=== PATIENT | female | born 1985 | race Caucasian/White ===

== ENCOUNTER 2020-01-11 13:22 | Outpatient (CLI) | payer OTHER ==
[~2020-01-11] VITALS: Ht 165.1 cm; Wt 78.1 kg
[~2020-01-11 13:22] MED LIST: PREN1TAB60 PO
[2020-01-11 14:00] VITALS: BP 109/71
[2020-01-11 14:38] LABS: MICROSCOPIC INDICATED
== END 2020-01-11 15:46 | disposition home or self-care (01) ==
LOC: LDOP 13:22
PROVIDERS: ATTEND Obstetrics & Gynecology
DX: O26.893 Other specified pregnancy related conditions, third trimester (principal); Z3A.34 34 weeks gestation of pregnancy; R10.9 Unspecified abdominal pain
CPT/HCPCS: 59025; 81001; 87086; 99211; G0463

== ENCOUNTER 2020-02-03 10:57 | Outpatient (CLI) | payer OTHER ==
[~2020-02-03] VITALS: Ht 165.1 cm; Wt 79.5 kg
[2020-02-03 11:00] VITALS: BP 120/84
== END 2020-02-03 13:35 | disposition home or self-care (01) ==
LOC: LDOP 10:57
PROVIDERS: ATTEND Obstetrics & Gynecology
DX: O46.8X3 Other antepartum hemorrhage, third trimester (principal); Z3A.37 37 weeks gestation of pregnancy
CPT/HCPCS: 59025; 76819; 99211; G0463

== ENCOUNTER 2020-02-17 02:11 | Inpatient (IN) | payer OTHER ==
[~2020-02-17] VITALS: Ht 165.1 cm; Wt 81.4 kg
[2020-02-17] MEDS ORDERED: D5%-LACTATED RINGERS 1,000 ML IV SCH (02:43)
[2020-02-17] MEDS ORDERED: LACTATED RINGERS 1,000 ML IV SCH ×2 (02:43→10:00)
[2020-02-17] MEDS ORDERED: OXYTOCIN 30U/ 0.9% NaCL 500ML 500 ML IV ONE (02:43)
[2020-02-17] MEDS ORDERED: AMPICILLIN 2 GM in SODIUM CHLORIDE 0.9% 100 ML IVPB STA (02:56)
[2020-02-17] MEDS ORDERED: FENTANYL PF 100 MCG/2ML IV PRN (03:00)
[2020-02-17] MEDS ORDERED: PENICILLIN GK 2,500,000 UNITS in DEXTROSE 5% 100 ML IVPB SCH (03:00)
[2020-02-17] MEDS ORDERED: CALCIUM CARBONATE 500 MG TAB.CHEW PO PRN ×2 (03:00→16:30)
[2020-02-17] MEDS ORDERED: PENICILLIN GK 5,000,000 UNITS in DEXTROSE 5% 100 ML IVPB ONE (03:00)
[2020-02-17] MEDS ORDERED: FENTANYL PF 100 MCG/2ML IVPush PRN (03:00)
[2020-02-17] MEDS ORDERED: SODIUM CITRATE/CITRIC ACID 30 ML UDC PO PRN (03:00)
[2020-02-17] MEDS ORDERED: TERBUTALINE 1 MG/ML, 1ML SQ PRN (03:00)
[2020-02-17] MEDS ORDERED: METOCLOPRAMIDE 5 MG/ML, 2ML IVPush PRN (03:00)
[2020-02-17] MEDS ORDERED: TERBUTALINE 1 MG/ML, 1ML IVPush PRN (03:00)
[2020-02-17] MEDS ORDERED: ONDANSETRON 2MG/ML, 2ML IVPush PRN ×2 (03:00→10:00)
[2020-02-17] MEDS ORDERED: NEWBORN KIT ONE (03:01)
[2020-02-17 03:30] LABS: BASOPHILS # (AUTO) 0.02 x10^3/uL (0-0.1); BASOPHILS % (AUTO) 0 % (0-1); EOSINOPHILS # (AUTO) 0.13 x10^3/uL (0-0.4); EOSINOPHILS % (AUTO) 2 % (1-7); LYMPHOCYTES # (AUTO) 1.61 x10^3/uL (1-3.4); LYMPHOCYTES % (AUTO) 19 % (22-44); MD NO; MEAN CORPUSCULAR HGB CONC 32.5 g/dL (32.4-35.8); MEAN CORPUSCULAR VOLUME 73.8 fL (80-100); MEAN PLATELET VOLUME 7.8 fL (7.4-10.4); MONOCYTES # (AUTO) 0.51 x10^3/uL (0.2-0.8); MONOCYTES % (AUTO) 6 % (2-9); NEUTROPHILS # (AUTO) 6.05 x10^3/uL (1.8-6.8); NEUTROPHILS % (AUTO) 73 % (42-75); PLATELET COUNT 213 x10^3/uL (130-400); RED BLOOD COUNT 4.01 x10^6/uL (3.82-5.3); RED CELL DISTRIBUTION WIDTH 16.8 % (9.6-15.2)
[2020-02-17] MEDS ORDERED: OXYTOCIN 30U/ 0.9% NaCL 500ML 500 ML IV PRN (04:36)
[2020-02-17] MEDS ORDERED: FENTANYL/BUPIV./NS/PF 250 ML EPIDCONT SCH ×2 (07:08→10:00)
[2020-02-17] MEDS: AMPICILLIN 1 GM in SODIUM CHLORIDE 0.9% 50 ML IVPB SCH ×2 (07:27→11:06)
[2020-02-17] MEDS ORDERED: FENTANYL PF 500 MCG, BUPIVACAINE/PF 0.5%, 30ML 62.5 ML in SODIUM CHLORIDE 0.9% 177.5 ML EPIDCONT SCH (07:30)
[2020-02-17] MEDS: LACTATED RINGERS 1,000 ML IVBOLUS PRN ×2 (08:51→09:47)
[2020-02-17] MEDS ORDERED: FENTANYL PF 100 MCG/2ML ONE (09:16)
[2020-02-17] MEDS ORDERED: BUPIVACAINE 0.25% ONE (09:16)
[2020-02-17] MEDS ORDERED: FENTANYL/BUPIV./NS/PF 250 ML EPIDCONT ONE (09:19)
[2020-02-17] MEDS ORDERED: EPHEDRINE 50 MG/ML, 1ML IVPush PRN (10:00)
[2020-02-17] MEDS ORDERED: LACTATED RINGERS 1,000 ML IVBOLUS PRN (10:00)
[2020-02-17] MEDS ORDERED: DEXTROSE 50%, 50ML SYRINGE IV STA (10:34)
[2020-02-17] MEDS: OXYTOCIN 30U/ 0.9% NaCL 500ML 500 ML IV SCH (16:10)
[2020-02-17] MEDS ORDERED: OXYTOCIN 30U/ 0.9% NaCL 500ML 500 ML ONE (16:26)
[2020-02-17] MEDS ORDERED: MISOPROSTOL 200 MCG TABLET PR PRN (16:30)
[2020-02-17] MEDS ORDERED: CARBOPROST TROMETHAMINE 250 MCG/ML, 1ML IM PRN (16:30)
[2020-02-17] MEDS ORDERED: HYDROcodone/APAP 5/325 TABLET PO PRN ×2 (16:30)
[2020-02-17] MEDS ORDERED: DOCUSATE 100 MG CAPSULE PO PRN (16:30)
[2020-02-17] MEDS ORDERED: SIMETHICONE 80 MG CHEW TAB PO PRN (16:30)
[2020-02-17] MEDS ORDERED: ACETAMINOPHEN 325 MG TABLET PO PRN ×2 (16:30)
[2020-02-17] MEDS ORDERED: METHYLERGONOVINE 0.2 MG/ML IM PRN (16:30)
[2020-02-17] MEDS ORDERED: ONDANSETRON 2MG/ML, 2ML IV PRN (16:30)
[2020-02-17 18:29] VITALS: BP 116/78
[2020-02-17 19:30] VITALS: BP 115/85
[2020-02-17] MEDS: IBUPROFEN 600 MG TABLET PO PRN (19:40)
[2020-02-18 00:01] VITALS: BP 121/82
[2020-02-18 00:09] LABS: BASOPHILS # (AUTO) 0.04 x10^3/uL (0-0.1); BASOPHILS % (AUTO) 0 % (0-1); EOSINOPHILS # (AUTO) 0.16 x10^3/uL (0-0.4); EOSINOPHILS % (AUTO) 1 % (1-7); LYMPHOCYTES % (AUTO) 16 % (22-44); MD NO; MEAN CORPUSCULAR HEMOGLOBIN 24.1 pg (27.0-34.8); MEAN CORPUSCULAR HGB CONC 32.7 g/dL (32.4-35.8); MEAN CORPUSCULAR VOLUME 73.9 fL (80-100); MEAN PLATELET VOLUME 8.4 fL (7.4-10.4); MONOCYTES # (AUTO) 0.66 x10^3/uL (0.2-0.8); MONOCYTES % (AUTO) 5 % (2-9); NEUTROPHILS # (AUTO) 9.52 x10^3/uL (1.8-6.8); NEUTROPHILS % (AUTO) 78 % (42-75); PLATELET COUNT 218 x10^3/uL (130-400); RED BLOOD COUNT 4.05 x10^6/uL (3.82-5.3); RED CELL DISTRIBUTION WIDTH 16.7 % (9.6-15.2)
[2020-02-18] MEDS: OXYTOCIN 30U/ 0.9% NaCL 500ML 500 ML IV SCH (02:10)
[2020-02-18] MEDS: IBUPROFEN 600 MG TABLET PO PRN ×2 (02:17→08:22)
[2020-02-18 04:37] VITALS: BP 99/66
[2020-02-18 07:16] VITALS: BP 110/76
[2020-02-18] MEDS ORDERED: PRENATAL VIT/IRON/FA 1 EACH TABLET PO SCH (09:00)
== END 2020-02-18 12:42 | disposition home or self-care (01) | DRG 807 ==
LOC: LDOP 02:11 → LDIP 03:00 → 2NW 18:00
PROVIDERS: ADMIT Obstetrics & Gynecology; ATTEND Obstetrics & Gynecology
PROC: 10E0XZZ Delivery of Products of Conception, External Approach (ICD-10-PCS; principal; 2020-02-17)
PROC: 0HQ9XZZ Repair Perineum Skin, External Approach (ICD-10-PCS; 2020-02-17)
PROC: 3E0R3BZ Introduction of Anesthetic Agent into Spinal Canal, Percutaneous Approach (ICD-10-PCS; 2020-02-17)
PROC: 00HU33Z Insertion of Infusion Device into Spinal Canal, Percutaneous Approach (ICD-10-PCS; 2020-02-17)
DX: O99.824 Streptococcus B carrier state complicating childbirth (principal); Z37.0 Single live birth; D50.9 Iron deficiency anemia, unspecified; O70.0 First degree perineal laceration during delivery; O99.02 Anemia complicating childbirth; Z3A.39 39 weeks gestation of pregnancy; Z88.1 Allergy status to other antibiotic agents
CPT/HCPCS: 36415; J7121; 82962; 85025; 86592; 86850; 86900; 89060; G0378; J0290; J3490; J2590; J3010; J7120; Q0114